=== PATIENT | male | born 1950 | race African-American/Black ===

== ENCOUNTER 2022-06-23 18:44 | Inpatient (IN) | payer OTHER ==
[2022-06-23] MEDS ORDERED: SODIUM CHLORIDE 0.9% 500 ML INFUS.BAG IV ONE ×2 (19:22→21:06)
[2022-06-23] MEDS ORDERED: PANTOPRAZOLE SODIUM 40 MG VIAL IVPUSH ONE (19:22)
[2022-06-23] MEDS ORDERED: ONDANSETRON 4 MG/2 ML VIAL IVPUSH ONE (19:36)
[2022-06-23] MEDS ORDERED: ACETAMINOPHEN 1000 MG/100 ML BAG IVPB ONE (20:01)
[2022-06-23] MEDS ORDERED: ACETAMINOPHEN INJECTION 100 ML IVPB ONE (20:03)
[2022-06-23] MEDS ORDERED: PANTOPRAZOLE SODIUM 40 MG VIAL ONE (20:03)
[2022-06-23 20:27] LABS: VENOUS BASE EXCESS -2.4 mmol/L (-2-2); VENOUS O2 SATURATION 41.6 % (70-80); VENOUS PCO2 49.5 mmHg (38-52); VENOUS PH 7.312 (7.310-7.410)
[2022-06-23 20:31] LABS: BASO % 0.2 % (0-2.0); HEMATOCRIT 51.4 % (35.4-49); HEMOGLOBIN 16.9 GM/dL (11.7-16.9); LYMPH % 7.9 % (8-40); MCH 28.6 pg (25.7-33.7); MCHC 32.8 g/dl (32.0-35.9); MEAN CELL VOLUME 87.2 fl (80-96); MEAN PLT VOLUME 9.7 fl (7.5-11.1); MONO % 6.4 % (3.8-10.2); NEUT % 85.5 % (42.8-82.8); PLATELET COUNT 228 10^3/uL (134-434); RBC 5.89 M/mm3 (4.00-5.60); RDW 14.9 % (11.9-15.9); WHITE BLOOD COUNT 15.9 K/mm3 (4.0-10.0)
[2022-06-23 20:38] LABS: INR 1.59 (0.83-1.09); PROTHROMBIN TIME (PATIENT) 18.4 SEC (9.7-13.0)
[2022-06-23 20:41] LABS: ACTIVATED PTT 45.1 SECONDS (25.2-36.5)
[2022-06-23 20:50] LABS: CHLORIDE 102 mmol/L (98-107); SODIUM 137 mmol/L (136-145)
[2022-06-23 20:52] LABS: ANION GAP 8 MMOL/L (8-16); BLOOD UREA NITROGEN 38.6 mg/dL (7-18); CALCIUM 9.6 mg/dL (8.5-10.1); CO2 26 mmol/L (21-32); GLUCOSE,RANDOM 113 mg/dL (74-106); LIPASE 32 U/L (73-393); MAGNESIUM 2.6 mg/dL (1.8-2.4)
[2022-06-23 20:54] LABS: ALBUMIN 3.3 g/dl (3.4-5.0)
[2022-06-23 20:55] LABS: PHOSPHOROUS 4.2 mg/dL (2.5-4.9); SGOT/AST 33 U/L (15-37); SGPT/ALT 28 U/L (13-61)
[2022-06-23 20:58] LABS: ALK PHOS 117 U/L (45-117); BILIRUBIN,TOTAL 0.6 mg/dL (0.2-1); TOT PROT 7.4 g/dl (6.4-8.2)
[2022-06-23 21:01] LABS: LACTIC ACID 3.1 mmol/L (0.4-2.0)
[2022-06-23] MEDS ORDERED: ONDANSETRON 4 MG/2 ML VIAL ONE (21:12)
[2022-06-23 23:23] LABS: LACTIC ACID 2.1 mmol/L (0.4-2.0)
[2022-06-24] MEDS ORDERED: VANCOMYCIN 1,000 MG in DEXTROSE 5%-WATER - 250 ML IVPB ONE (02:42)
[2022-06-24] MEDS ORDERED: DEXTROSE 5%-0.45% SALINE 1,000 ML IV SCH (02:45)
[2022-06-24] MEDS ORDERED: VANCOMYCIN/WATER FOR INJ (PEG) 1,000 MG/200 ML BAG IVPB ONE (02:52)
[2022-06-24] MEDS: AZTREONAM 1 GM VIAL (RESTRICTED TO ID) IVPB SCH (14:00)
[2022-06-24] MEDS ORDERED: AZTREONAM 1 GM VIAL (RESTRICTED TO ID) ONE (14:01)
[2022-06-24] MEDS: DEXTROSE 5%-NORMAL SALINE 1,000 ML IV SCH (15:28)
[2022-06-24] MEDS ORDERED: PANTOPRAZOLE SODIUM 40 MG VIAL IVPUSH SCH (22:00)
[2022-06-25] MEDS: DEXTROSE 5%-NORMAL SALINE 1,000 ML IV SCH ×3 (01:01→15:52)
[2022-06-25] MEDS: AZTREONAM 1 GM VIAL (RESTRICTED TO ID) IVPB SCH ×2 (01:05→15:52)
[2022-06-25] MEDS: PANTOPRAZOLE SODIUM 40 MG VIAL IVPUSH SCH (10:44)
[2022-06-25 13:13] LABS: BASO % 0.2 % (0-2.0); EOS % 0.4 % (0-4.5); HEMATOCRIT 38.7 % (35.4-49); HEMOGLOBIN 12.6 GM/dL (11.7-16.9); LYMPH % 12.1 % (8-40); MCH 28.3 pg (25.7-33.7); MCHC 32.6 g/dl (32.0-35.9); MEAN CELL VOLUME 86.9 fl (80-96); MEAN PLT VOLUME 9.6 fl (7.5-11.1); MONO % 5.7 % (3.8-10.2); NEUT % 81.6 % (42.8-82.8); PLATELET COUNT 183 10^3/uL (134-434); RBC 4.45 M/mm3 (4.00-5.60); RDW 14.5 % (11.9-15.9); WHITE BLOOD COUNT 10.2 K/mm3 (4.0-10.0)
[2022-06-25 14:38] LABS: CALCIUM 8.2 mg/dL (8.5-10.1)
[2022-06-25 14:39] LABS: BLOOD UREA NITROGEN 19.2 mg/dL (7-18); MAGNESIUM 1.7 mg/dL (1.8-2.4)
[2022-06-25 14:40] LABS: CREATININE 1.1 mg/dL (0.55-1.3)
[2022-06-25 14:41] LABS: URIC ACID 4.8 mg/dL (2.6-7.2)
[2022-06-25 14:42] LABS: BILIRUBIN,TOTAL 0.3 mg/dL (0.2-1); TOT PROT 5.6 g/dl (6.4-8.2)
[2022-06-25 14:54] LABS: ALBUMIN 2.6 g/dl (3.4-5.0)
[2022-06-25] MEDS: AZTREONAM 1 GM in DEXTROSE 5%-WATER - 50 ML IVPB SCH ×2 (15:15→22:47)
[2022-06-25] MEDS: POLYETHYLENE GLYCOL (HEALTHYLAX) 3350 17 GM PACKET PO SCH ×2 (15:16→22:48)
[2022-06-25] MEDS ORDERED: NAPH,MB-DB/K PH,MBDB POWDER PACKET PO ONE (16:22)
[2022-06-25] MEDS ORDERED: MAGNESIUM SULFATE IN WATER 2 GM/50 ML IVPB IVPB ONE (16:22)
[2022-06-25 20:12] LABS: EPI CELLS 2 /uL (0-25.1); HYALINE CASTS 1 /uL (0-3.1); URINE APPEARANCE CLEAR; URINE BACTERIA 1 /uL (0-1359); URINE BILIRUBIN NEGATIVE (NEGATIVE); URINE COLOR YELLOW; URINE GLUCOSE (UA) NEGATIVE (NEGATIVE); URINE KETONE NEGATIVE (NEGATIVE); URINE LEUK ESTERASE NEGATIVE (NEGATIVE); URINE NITRITE NEGATIVE (NEGATIVE); URINE PROTEIN 1+ (NEGATIVE); URINE UROBILINOGEN 0.2 mg/dL (0.2-1.0); URINE WBC 11 /uL (0-25.8)
[2022-06-26] MEDS: POLYETHYLENE GLYCOL (HEALTHYLAX) 3350 17 GM PACKET PO SCH ×3 (06:16→21:18)
[2022-06-26] MEDS: PANTOPRAZOLE SODIUM 40 MG VIAL IVPUSH SCH (09:21)
[2022-06-26] MEDS: AZTREONAM 1 GM in DEXTROSE 5%-WATER - 50 ML IVPB SCH (09:21)
[2022-06-26] MEDS: DEXTROSE 5%-NORMAL SALINE 1,000 ML IV SCH (18:37)
[2022-06-26] MEDS ORDERED: DEXTROSE 5%-NORMAL SALINE 1,000 ML IV SCH (22:31)
[2022-06-27] MEDS: POLYETHYLENE GLYCOL (HEALTHYLAX) 3350 17 GM PACKET PO SCH ×3 (06:54→22:11)
[2022-06-27 09:48] LABS: CHLORIDE 108 mmol/L (98-107); SODIUM 142 mmol/L (136-145)
[2022-06-27 09:52] LABS: CALCIUM 8.2 mg/dL (8.5-10.1)
[2022-06-27] MEDS: PANTOPRAZOLE SODIUM 40 MG VIAL IVPUSH SCH (09:52)
[2022-06-27 09:53] LABS: GLUCOSE,RANDOM 156 mg/dL (74-106)
[2022-06-27 09:54] LABS: BLOOD UREA NITROGEN 5.6 mg/dL (7-18); CO2 28 mmol/L (21-32)
[2022-06-27 09:58] LABS: CREATININE 0.8 mg/dL (0.55-1.3)
[2022-06-27 10:01] LABS: ANION GAP 6 MMOL/L (8-16)
[2022-06-27] MEDS ORDERED: ONDANSETRON 4 MG/2 ML VIAL IVPB PRN (10:06)
[2022-06-27] MEDS: KCL 10 MEQ IVPB 10 MEQ/100 ML INFUS.BAG IVPB SCH ×3 (11:19→13:35)
[2022-06-27] MEDS ORDERED: POTASSIUM CHLORIDE ORAL LIQUID 20 MEQ/15 ML PO ONE (15:41)
[2022-06-27] MEDS: OLANZapine 2.5 MG TABLET PO SCH (22:08)
[2022-06-27] MEDS: diphenhydrAMINE HCL 25 MG CAPSULE (FP) PO SCH (22:08)
[2022-06-27] MEDS: ATORVASTATIN CA 20 MG TABLET (FP) PO SCH (22:08)
[2022-06-27] MEDS: LATANOPROST 0.005% OPHTH SOLN 2.5ML BOTTLE OD SCH (22:08)
[2022-06-27] MEDS: TERAZOSIN HCL 1 MG CAPSULE PO SCH (22:08)
[2022-06-27] MEDS: BRIMONIDINE TARTRATE 0.2% OPHTHALMIC 5 ML BOTTLE OD SCH (22:53)
[2022-06-27] MEDS: INSULIN (LEVEMIR) 100 UNITS/ML UNITS SQ SCH (22:54)
[2022-06-28] MEDS: POLYETHYLENE GLYCOL (HEALTHYLAX) 3350 17 GM PACKET PO SCH ×3 (05:49→21:11)
[2022-06-28] MEDS: PANTOPRAZOLE SODIUM 40 MG VIAL IVPUSH SCH (09:38)
[2022-06-28] MEDS: diphenhydrAMINE HCL 25 MG CAPSULE (FP) PO SCH ×2 (09:38→21:11)
[2022-06-28] MEDS: amLODIPine BESYLATE 5 MG TABLET (FP) PO SCH (09:42)
[2022-06-28] MEDS: BRIMONIDINE TARTRATE 0.2% OPHTHALMIC 5 ML BOTTLE OD SCH ×2 (09:43→21:10)
[2022-06-28 10:48] LABS: BASO % 0.2 % (0-2.0); EOS % 0.8 % (0-4.5); HEMATOCRIT 38.6 % (35.4-49); LYMPH % 36.4 % (8-40); MCHC 33.8 g/dl (32.0-35.9); MEAN CELL VOLUME 85.9 fl (80-96); MEAN PLT VOLUME 8.9 fl (7.5-11.1); MONO % 7.3 % (3.8-10.2); NEUT % 55.3 % (42.8-82.8); PLATELET COUNT 183 10^3/uL (134-434); RBC 4.49 M/mm3 (4.00-5.60); RDW 13.7 % (11.9-15.9); WHITE BLOOD COUNT 6.4 K/mm3 (4.0-10.0)
[2022-06-28 11:03] LABS: CALCIUM 8.6 mg/dL (8.5-10.1)
[2022-06-28 11:04] LABS: ALBUMIN 2.8 g/dl (3.4-5.0); BLOOD UREA NITROGEN 4.5 mg/dL (7-18); MAGNESIUM 1.7 mg/dL (1.8-2.4)
[2022-06-28 11:07] LABS: CREATININE 0.9 mg/dL (0.55-1.3)
[2022-06-28 11:08] LABS: BILIRUBIN,TOTAL 0.5 mg/dL (0.2-1)
[2022-06-28 11:09] LABS: TOT PROT 6.1 g/dl (6.4-8.2)
[2022-06-28] MEDS: TERAZOSIN HCL 1 MG CAPSULE PO SCH (21:13)
[2022-06-28] MEDS: ATORVASTATIN CA 20 MG TABLET (FP) PO SCH (21:15)
[2022-06-28] MEDS: OLANZapine 2.5 MG TABLET PO SCH (21:16)
[2022-06-28] MEDS: INSULIN (LEVEMIR) 100 UNITS/ML UNITS SQ SCH (21:27)
[2022-06-28] MEDS: LATANOPROST 0.005% OPHTH SOLN 2.5ML BOTTLE OD SCH (21:51)
[2022-06-29] MEDS: POLYETHYLENE GLYCOL (HEALTHYLAX) 3350 17 GM PACKET PO SCH ×3 (05:39→21:05)
[2022-06-29] MEDS: diphenhydrAMINE HCL 25 MG CAPSULE (FP) PO SCH ×2 (08:59→21:05)
[2022-06-29] MEDS: amLODIPine BESYLATE 5 MG TABLET (FP) PO SCH (08:59)
[2022-06-29] MEDS: PANTOPRAZOLE SODIUM 40 MG VIAL IVPUSH SCH (08:59)
[2022-06-29] MEDS: BRIMONIDINE TARTRATE 0.2% OPHTHALMIC 5 ML BOTTLE OD SCH ×2 (09:01→21:05)
[2022-06-29] MEDS: OLANZapine 2.5 MG TABLET PO SCH (21:07)
[2022-06-29] MEDS: ATORVASTATIN CA 20 MG TABLET (FP) PO SCH (21:07)
[2022-06-29] MEDS: LATANOPROST 0.005% OPHTH SOLN 2.5ML BOTTLE OD SCH (21:07)
[2022-06-29] MEDS: TERAZOSIN HCL 1 MG CAPSULE PO SCH (21:11)
[2022-06-29] MEDS: INSULIN (LEVEMIR) 100 UNITS/ML UNITS SQ SCH (21:18)
[2022-06-30] MEDS: POLYETHYLENE GLYCOL (HEALTHYLAX) 3350 17 GM PACKET PO SCH ×3 (05:49→21:11)
[2022-06-30] MEDS: PANTOPRAZOLE SODIUM 40 MG VIAL IVPUSH SCH (09:12)
[2022-06-30] MEDS: BRIMONIDINE TARTRATE 0.2% OPHTHALMIC 5 ML BOTTLE OD SCH ×2 (09:12→21:11)
[2022-06-30] MEDS: diphenhydrAMINE HCL 25 MG CAPSULE (FP) PO SCH ×2 (09:12→21:09)
[2022-06-30] MEDS: amLODIPine BESYLATE 5 MG TABLET (FP) PO SCH (09:12)
[2022-06-30 09:44] LABS: INR 0.97 (0.83-1.09); PROTHROMBIN TIME (PATIENT) 11.2 SEC (9.7-13.0)
[2022-06-30 09:53] LABS: BASO % 0.5 % (0-2.0); EOS % 1.3 % (0-4.5); HEMATOCRIT 40.8 % (35.4-49); HEMOGLOBIN 13.4 GM/dL (11.7-16.9); LYMPH % 32.8 % (8-40); MCH 28.3 pg (25.7-33.7); MCHC 32.9 g/dl (32.0-35.9); MEAN CELL VOLUME 86.2 fl (80-96); MONO % 9.3 % (3.8-10.2); NEUT % 56.1 % (42.8-82.8); PLATELET COUNT 203 10^3/uL (134-434); RBC 4.73 M/mm3 (4.00-5.60); RDW 13.7 % (11.9-15.9); WHITE BLOOD COUNT 5.1 K/mm3 (4.0-10.0)
[2022-06-30 10:12] LABS: BLOOD UREA NITROGEN 5.2 mg/dL (7-18)
[2022-06-30 10:15] LABS: CREATININE 0.9 mg/dL (0.55-1.3)
[2022-06-30] MEDS ORDERED: BISACODYL 5 MG TABLET.DR (FP) PO ONE (16:00)
[2022-06-30] MEDS ORDERED: PEG 3350/NA SULF BICARB CL/KCL 4000 ML SOLN.RECON PO ONE (17:00)
[2022-06-30] MEDS: ATORVASTATIN CA 20 MG TABLET (FP) PO SCH (21:09)
[2022-06-30] MEDS: OLANZapine 2.5 MG TABLET PO SCH (21:10)
[2022-06-30] MEDS: TERAZOSIN HCL 1 MG CAPSULE PO SCH (21:12)
[2022-06-30] MEDS: LATANOPROST 0.005% OPHTH SOLN 2.5ML BOTTLE OD SCH (21:12)
[2022-06-30] MEDS: INSULIN (LEVEMIR) 100 UNITS/ML UNITS SQ SCH (21:14)
[2022-07-01] MEDS: POLYETHYLENE GLYCOL (HEALTHYLAX) 3350 17 GM PACKET PO SCH ×3 (06:39→21:56)
[2022-07-01] MEDS: PANTOPRAZOLE SODIUM 40 MG VIAL IVPUSH SCH (10:02)
[2022-07-01] MEDS: amLODIPine BESYLATE 5 MG TABLET (FP) PO SCH (10:02)
[2022-07-01] MEDS: diphenhydrAMINE HCL 25 MG CAPSULE (FP) PO SCH (10:02)
[2022-07-01] MEDS: BRIMONIDINE TARTRATE 0.2% OPHTHALMIC 5 ML BOTTLE OD SCH ×2 (10:03→21:57)
[2022-07-01] MEDS ORDERED: diphenhydrAMINE HCL 25 MG CAPSULE (FP) PO PRN (10:55)
[2022-07-01] MEDS ORDERED: DEXTROSE 5%-0.45% SALINE 1,000 ML IV SCH (11:00)
[2022-07-01] MEDS: ATORVASTATIN CA 20 MG TABLET (FP) PO SCH (21:54)
[2022-07-01] MEDS: OLANZapine 2.5 MG TABLET PO SCH (21:54)
[2022-07-01] MEDS: TERAZOSIN HCL 1 MG CAPSULE PO SCH (21:55)
[2022-07-01] MEDS: LATANOPROST 0.005% OPHTH SOLN 2.5ML BOTTLE OD SCH (21:57)
[2022-07-01] MEDS ORDERED: DEXTROSE 50%-WATER 25 GM/50 ML DISP.SYRIN IVPUSH ONE (22:27)
[2022-07-01] MEDS: INSULIN (LEVEMIR) 100 UNITS/ML UNITS SQ SCH (23:05)
[2022-07-02] MEDS: POLYETHYLENE GLYCOL (HEALTHYLAX) 3350 17 GM PACKET PO SCH ×3 (06:22→22:38)
[2022-07-02] MEDS ORDERED: INSULIN (NOVOLOG) ASPART 100 UNITS/ML 10ML VIAL ONE (07:12)
[2022-07-02] MEDS ORDERED: INSULIN (LEVEMIR) 100 UNITS/ML UNITS SQ ONE (07:12)
[2022-07-02 08:43] LABS: BASO % 0.4 % (0-2.0); EOS % 0.5 % (0-4.5); MCHC 32.5 g/dl (32.0-35.9); MEAN CELL VOLUME 86.2 fl (80-96); MEAN PLT VOLUME 9.1 fl (7.5-11.1); MONO % 6.7 % (3.8-10.2); NEUT % 66.4 % (42.8-82.8); PLATELET COUNT 215 10^3/uL (134-434); RBC 4.29 M/mm3 (4.00-5.60); RDW 13.4 % (11.9-15.9); WHITE BLOOD COUNT 7.2 K/mm3 (4.0-10.0)
[2022-07-02 09:22] LABS: ALBUMIN 2.5 g/dl (3.4-5.0)
[2022-07-02 09:24] LABS: TOT PROT 5.4 g/dl (6.4-8.2)
[2022-07-02 09:25] LABS: BILIRUBIN,TOTAL 0.5 mg/dL (0.2-1); CALCIUM 8.1 mg/dL (8.5-10.1)
[2022-07-02] MEDS: PANTOPRAZOLE 40 MG TABLET PO SCH (10:19)
[2022-07-02] MEDS: amLODIPine BESYLATE 5 MG TABLET (FP) PO SCH (10:19)
[2022-07-02] MEDS: BRIMONIDINE TARTRATE 0.2% OPHTHALMIC 5 ML BOTTLE OD SCH ×2 (10:19→22:40)
[2022-07-02] MEDS: RIVAROXABAN 20 MG TABLET PO SCH (18:26)
[2022-07-02] MEDS: ATORVASTATIN CA 20 MG TABLET (FP) PO SCH (22:39)
[2022-07-02] MEDS: OLANZapine 2.5 MG TABLET PO SCH (22:39)
[2022-07-02] MEDS: LATANOPROST 0.005% OPHTH SOLN 2.5ML BOTTLE OD SCH (22:40)
[2022-07-02] MEDS: TERAZOSIN HCL 1 MG CAPSULE PO SCH (22:41)
[2022-07-02] MEDS: INSULIN (LEVEMIR) 100 UNITS/ML UNITS SQ SCH (22:45)
[2022-07-03] MEDS: POLYETHYLENE GLYCOL (HEALTHYLAX) 3350 17 GM PACKET PO SCH ×2 (05:31→13:16)
[2022-07-03] MEDS: amLODIPine BESYLATE 5 MG TABLET (FP) PO SCH (09:47)
[2022-07-03] MEDS: PANTOPRAZOLE 40 MG TABLET PO SCH (09:47)
[2022-07-03] MEDS: BRIMONIDINE TARTRATE 0.2% OPHTHALMIC 5 ML BOTTLE OD SCH (09:48)
[2022-07-03 12:24] LABS: BASO % 0.5 % (0-2.0); EOS % 0.7 % (0-4.5); HEMATOCRIT 34.8 % (35.4-49); HEMOGLOBIN 11.7 GM/dL (11.7-16.9); LYMPH % 28.2 % (8-40); MCH 29.2 pg (25.7-33.7); MCHC 33.5 g/dl (32.0-35.9); MEAN CELL VOLUME 87.3 fl (80-96); MEAN PLT VOLUME 8.6 fl (7.5-11.1); MONO % 7.2 % (3.8-10.2); NEUT % 63.4 % (42.8-82.8); PLATELET COUNT 214 10^3/uL (134-434); RBC 3.99 M/mm3 (4.00-5.60); RDW 14.1 % (11.9-15.9)
[2022-07-03 14:25] VITALS: BMI 21.9
[2022-07-03 15:22] VITALS: BP 130/71; PULSE 71; RESP 15; TEMP 97.6
[2022-07-03] MEDS: RIVAROXABAN 20 MG TABLET PO SCH (17:31)
== END 2022-07-03 18:54 | DRG 378 ==
LOC: JER 18:44 → JERBED 19:29 → J4W 06-24 16:36 → J8W 06-26 22:13
PROVIDERS: ADMIT Internal Medicine; ATTEND Internal Medicine
PROC: 0DBP8ZX Excision of Rectum, Via Natural or Artificial Opening Endoscopic, Diagnostic (ICD-10-PCS; 2022-07-01)
PROC: 0DBN8ZX Excision of Sigmoid Colon, Via Natural or Artificial Opening Endoscopic, Diagnostic (ICD-10-PCS; 2022-07-01)
PROC: 0DB68ZX Excision of Stomach, Via Natural or Artificial Opening Endoscopic, Diagnostic (ICD-10-PCS; 2022-07-01)
PROC: 0DBK8ZX Excision of Ascending Colon, Via Natural or Artificial Opening Endoscopic, Diagnostic (ICD-10-PCS; principal; 2022-07-01 11:45)
DX: K92.2 Gastrointestinal hemorrhage, unspecified (principal); E87.2 Acidosis; N17.9 Acute kidney failure, unspecified; I24.8 Other forms of acute ischemic heart disease; N39.0 Urinary tract infection, site not specified; K92.0 Hematemesis; E78.5 Hyperlipidemia, unspecified; D64.9 Anemia, unspecified; Z88.0 Allergy status to penicillin; I48.91 Unspecified atrial fibrillation; Z79.01 Long term (current) use of anticoagulants; E11.9 Type 2 diabetes mellitus without complications; Z86.718 Personal history of other venous thrombosis and embolism; E86.0 Dehydration; K59.00 Constipation, unspecified; R93.5 Abnormal findings on diagnostic imaging of other abdominal regions, including retroperitoneum; K64.8 Other hemorrhoids; K29.40 Chronic atrophic gastritis without bleeding
CPT/HCPCS: 36415; 71045-TC-FY; 74176-TC; 76775-TC; 76856-TC; 80048; 80053; 81003; 82272; 82570; 82728; 82803; 82962; 83540; 83550; 83605; 83690; 83735; 84100; 84300; 84484; 84550; 85025; 85610; 85730; 86140; 86850; 86900; 86901; 87040; 87086; 88305-TC; 93005; 93010; 99285-25; C9803-CS; G0480; U0003; U0005

== ENCOUNTER 2025-05-17 19:28 | Emergency (ER) | payer OTHER ==
[2025-05-17 19:56] VITALS: BP 146/76; PULSE 0; RESP 0; BMI 24.3
[2025-05-17 22:04] VITALS: TEMP 96.4
== END 2025-05-17 22:17 | disposition expired ==
LOC: JER 19:28
PROC: 5A12012 Performance of Cardiac Output, Single, Manual (ICD-10-PCS; principal; 2025-05-17)
DX: I46.9 Cardiac arrest, cause unspecified (principal)
CPT/HCPCS: 92950; 99285-25